=== PATIENT | male | born 1990 | race Two or more races ===

== ENCOUNTER 2022-09-05 15:53 | Emergency (ER) | payer SELFPAY ==
[2022-09-05] MEDS ORDERED: Lidocaine 1% 50 ML MDV ONE (16:00)
[2022-09-05 16:51] LABS: CARBON DIOXIDE,CO2 26.4 mmol/L (21.0-32.0); POTASSIUM,K 3.4 mmol/L (3.5-5.1)
[2022-09-05 18:21] LABS: CORONAVIRUS COVID-19 NAA NEGATIVE (NEGATIVE); INFLUENZA A NAA NEGATIVE (NEGATIVE); INFLUENZA B NAA NEGATIVE (NEGATIVE)
[2022-09-05] MEDS ORDERED: cefTRIAXone 2 GM in Premix Bag 1 BAG IV ONE (19:08)
[2022-09-05] MEDS ORDERED: Iopamidol 755 Mg/ML 100 ML Bottle IVPUSH ONE (19:14)
[2022-09-05] MEDS ORDERED: Bacitracin Oint 1 GM U/D Packet TOP ONE (20:27)
== END 2022-09-05 22:17 | disposition home or self-care (01) ==
LOC: MW.ED 15:53
DX: S61.412A Laceration without foreign body of left hand, initial encounter (principal); Z20.822 Contact with and (suspected) exposure to COVID-19; W26.8XXA Contact with other sharp object(s), not elsewhere classified, initial encounter
CPT/HCPCS: 0240U; 12002; 36415; 73130; 73201; 73206; 80053; 85025; 86850; 86900; 86901; 96365; 99284; J0696; J2001; Q9967